=== PATIENT | female | born 1955 | race Caucasian/White ===

== ENCOUNTER → 2020-01-16 12:57 | Outpatient (BNVA) | payer MEDICARE, SELFPAY | PROVIDERS: PCP Internal Medicine; Referring Provider Internal Medicine; Visit Provider Student in an Organized Health Care Education/Training Program | DX: M81.0 Age-related osteoporosis without current pathological fracture (principal) | CPT/HCPCS: 96402; J0897 ==

== ENCOUNTER → 2020-03-26 13:54 | Outpatient (BNVA) | payer MEDICARE, SELFPAY | PROVIDERS: PCP Internal Medicine; Referring Provider Internal Medicine; Visit Provider Student in an Organized Health Care Education/Training Program | DX: M81.0 Age-related osteoporosis without current pathological fracture (principal) | CPT/HCPCS: 99212 ==

== ENCOUNTER → 2020-08-03 14:51 | Outpatient (BNVA) | payer MEDICARE, SELFPAY | PROVIDERS: PCP Internal Medicine; Visit Provider Student in an Organized Health Care Education/Training Program | DX: M81.0 Age-related osteoporosis without current pathological fracture (principal) | CPT/HCPCS: 96372 ==

== ENCOUNTER 2020-10-05 15:20 | Outpatient (REF) | payer MEDICARE, SELFPAY ==
--- NOTE | ~2020-10-05 | US_ITS ---
EXAMINATION: US THYROID CLINICAL INFORMATION: Neck mass. COMPARISON: Ultrasound soft tissue head/neck thyroid dated 08/13/2019 and 05/20/2018. TECHNIQUE: Linear transducer grayscale and color Doppler examination with attention to the region of the thyroid. FINDINGS: SIZE: Measurements of the thyroid lobes and nodules are given in sagittal, anteroposterior and transverse dimensions respectively. Right Thyroid Lobe: 3.6 x 1.1 x 1.9 cm, volume 3.9 mL. Previously 4.3 x 0.9 x 1.3 cm, volume 2.6 mL. Parenchyma: The gland echotexture is heterogeneous. Thyroid vascularity is normal. Left Thyroid Lobe: 2.9 x 0.8 x 0.9 cm, volume 1.1 mL. Previously 3.9 x 0.8 x 1.1 cm, volume 1.7 mL. Parenchyma: The gland echotexture is heterogeneous. Thyroid vascularity is normal. Isthmus: 0.1 cm in maximum AP dimension. Previously 0.2 cm. Estimated total number of nodules greater than or equal to 1 cm: 0. 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 Location: Right mid. Question nodule versus area of gland heterogeneity Size: 0.47 x 0.29 x 0.49 cm, volume 0.03 mL. Previously: Not documented on the previous study. Nodule characteristics: Composition: Solid/almost completely solid (2). Echogenicity: Hypoechoic (2). Shape: Not taller than wide (0). Margins: Smooth (0). Echogenic Foci: None (0). ACR TI-RADS total points: 4 ACR TI-RADS category: 4 2. Location: Left superior.Question nodule versus area of gland heterogeneity Size: 0.63 x 0.35 x 0.67 cm, volume 0.08 mL. Previously: Not documented on the previous study. Nodule characteristics: Composition: Solid/almost completely solid (2). Echogenicity: Hypoechoic (2). Shape: Not taller than wide (0). Margins: Smooth (0). Echogenic Foci: None (0). ACR TI-RADS total points: 4 ACR TI-RADS category: 4 NODES: No lymphadenopathy is seen in the tissue surrounding the thyroid gland. There is a 0.7 x 0.2 x 0.5 cm hyperechoic lesion inferior to the left lobe. Previously this measured 0.6 x 0.3 x 0.7 cm and is probably not appreciably changed. US/US thyroid IMPRESSION: Small heterogeneous thyroid gland. Question small bilateral nodules versus areas of gland heterogeneity. No appreciable change in the hyperechoic lesion inferior to the left lobe. . ACR TI-RADS RECOMMENDATION REFERENCE: Ultrasound-guided fine-needle aspiration, followup ultrasound, no further follow up. * TR1 (0 point) and TR 2 (2 points): No FNA or follow up * TR3 (3 points): FNA if more than or equal to 2.5 cm in maximum dimension, followup ultrasound in 1, 3 and 5 years if 1.5 to 2.4 cm in maximum dimension. * TR4 (4-6 points): FNA if more than or equal to 1.5 cm in maximum dimension, followup ultrasound in 1, 2, 3 and 5 years if 1 to 1.4 cm in maximum dimension. * TR5 (more than or equal to 7 points): FNA if more than or equal to 1 cm in maximum dimension, followup ultrasound every year for 5 years if 0.5 to 0.9 cm in maximum dimension. * TR3, TR4 or TR5 nodules that are below the size threshold for follow up receive no follow up.
== END 2020-10-05 15:21 | disposition home or self-care (01) ==
LOC: HO.US 15:20
PROVIDERS: Visit Provider Internal Medicine
DX: R22.1 Localized swelling, mass and lump, neck (principal)
CPT/HCPCS: 76536

== ENCOUNTER → 2020-10-14 08:39 | Outpatient (BNVA) | payer MEDICARE, SELFPAY | PROVIDERS: PCP Internal Medicine; Visit Provider Internal Medicine | CPT/HCPCS: Q3014 ==

== ENCOUNTER 2020-10-19 07:23 | Outpatient (REF) | payer MEDICARE, SELFPAY ==
[2020-10-19 08:58] LABS: Alanine Aminotransferase 16 U/L (0-31); Albumin Level 4.3 g/dL (3.5-5.0); Alkaline Phosphatase 48 U/L (39-117); Anion Gap 13 (12-20); Aspartate Amino Transferase 23 U/L (5-31); Bilirubin Total 0.7 mg/dL (0.0-1.0); Blood Urea Nitrogen 11 mg/dL (9-16); Calcium 9.3 mg/dL (8.4-10.2); Carbon Dioxide 26 mmol/L (22-29); Chloride 106 mmol/L (96-108); Estimated Glomerular Filt Rate > 60; Glucose Random 81 mg/dL (60-115); Potassium 4.3 mmol/L (3.3-5.1); Sodium 141 mmol/L (135-145); Total Protein 7.6 g/dL (6.5-8.0)
[2020-10-19 09:25] LABS: Free T4 (Free Thyroxine) 1.07 ng/dL (0.71-1.85); Thyroid Stimulating Hormone 2.65 uIU/mL (0.32-4.0)
[2020-10-24 12:57] LABS: Vitamin D 25-OH, D2 <4 ng/mL; Vitamin D 25-OH, D3 56 ng/mL; Vitamin D 25-OH, Total 56 ng/mL (30-100)
== END 2020-10-19 07:24 | disposition home or self-care (01) ==
LOC: HO.LAB 07:23
PROVIDERS: Student in an Organized Health Care Education/Training Program; PCP Internal Medicine; Visit Provider Internal Medicine
DX: M81.0 Age-related osteoporosis without current pathological fracture (principal); E03.9 Hypothyroidism, unspecified
CPT/HCPCS: 36415; 80053; 82306; 84439; 84443

== ENCOUNTER 2021-01-31 14:13 | Outpatient (REF) | payer MEDICARE, SELFPAY ==
[2021-01-31 15:11] LABS: Alanine Aminotransferase 16 U/L (0-31); Albumin Level 4.4 g/dL (3.5-5.0); Alkaline Phosphatase 51 U/L (39-117); Anion Gap 13 (12-20); Aspartate Amino Transferase 21 U/L (5-31); Bilirubin Total 0.5 mg/dL (0.0-1.0); Blood Urea Nitrogen 15 mg/dL (9-16); Carbon Dioxide 27 mmol/L (22-29); Chloride 104 mmol/L (96-108); Estimated Glomerular Filt Rate > 60; Glucose Random 97 mg/dL (60-115); Potassium 4.4 mmol/L (3.3-5.1); Sodium 140 mmol/L (135-145); Total Protein 7.5 g/dL (6.5-8.0)
[2021-01-31 15:34] LABS: Vitamin D 25-OH Total 65.8 ng/mL (>30)
== END 2021-01-31 14:14 | disposition home or self-care (01) ==
LOC: HO.LAB 14:13
PROVIDERS: PCP Internal Medicine; Visit Provider Nurse Practitioner Family
DX: M81.0 Age-related osteoporosis without current pathological fracture (principal)
CPT/HCPCS: 36415; 80053; 82306

== ENCOUNTER → 2021-02-08 14:26 | Outpatient (BNVA) | payer MEDICARE, SELFPAY | PROVIDERS: PCP Internal Medicine; Visit Provider Nurse Practitioner Family | DX: M81.0 Age-related osteoporosis without current pathological fracture (principal) | CPT/HCPCS: 96372 ==

== ENCOUNTER → 2021-06-01 14:14 | Outpatient (BNVA) | payer MEDICARE, SELFPAY | PROVIDERS: PCP Internal Medicine; Visit Provider Nurse Practitioner Family | DX: M81.0 Age-related osteoporosis without current pathological fracture (principal) | CPT/HCPCS: 99212 ==

== ENCOUNTER 2021-07-07 05:59 | Outpatient (REF) | payer MEDICARE, SELFPAY ==
--- NOTE | ~2021-07-07 | MM_ITS ---
EXAMINATION: BONE DENSITOMETRY CLINICAL INDICATION: Osteoporosis. COMPARISON: Baseline BD dated 05/14/2018. TECHNIQUE: Using a [employer] DXA System (software version: 13.1) manufactured by [employer], dual-energy x-ray absorptiometry was performed of the lumbar spine and left hip. The images are of good technical quality. Summary results are attached. FINDINGS: AP SPINE L1-L4: Current: BMD 0.873 g/cm2, Z-score -0.8, T-score -2.6, osteoporosis, 3.4% increase from baseline (<5% change is not significant). Baseline: BMD 0.844 g/cm2. LEFT FEMUR, NECK: Current: BMD 0.806 g/cm2, Z-score 0.0, T-score -1.7, osteopenia. Baseline: BMD 0.807 g/cm2. LEFT FEMUR, TOTAL: Current: BMD 0.852 g/cm2, Z-score 0.2, T-score -1.2, osteopenia, 3.6% increase from baseline (<5% change is not significant). Baseline: BMD 0.822 g/cm2. IDENTIFIED RISK FACTORS: Eaarly menopause, secondary osteoporosis. HISTORY OF FRACTURE: None listed. MEDICATIONS: Calcium, vitamin D, calcitonin. MM/XR DEXA axial skeleton IMPRESSION: 1. DIAGNOSIS: Osteoporosis based on the lowest T-score value of -2.6 in the lumbar spine applying World Health Organization criteria. 2. 10-YEAR FRACTURE RISK PREDICTION, FRAX: Major osteoporotic fracture (clinical spine, forearm, hip or shoulder) 5.4%. Hip fracture 0.8%. 3. Treatment Recommendations: NOF guidelines recommend consideration for treatment in postmenopausal women and men age 50 and older presenting with the following: -A hip or vertebral (clinical or morphometric) fracture. -T-score less than or equal to -2.5 at the femoral neck or spine after appropriate evaluation to exclude secondary causes. -Low bone mass at the hip or spine and a 10-year fracture probability by FRAX of greater than or equal to 3% for hip fracture or greater than or equal to 20% for major osteoporotic fracture based on the [place] adapted WHO algorithm. 4. Other Recommendations: All treatment decisions require clinical judgment and consideration of individual patient factors, including patient preferences, comorbidities, previous drug use, risk factors not captured in the FRAX model (e.g. frailty, falls, vitamin D deficiency, increased bone turnover, interval significant decline in bone density) and possible under or overestimation of fracture risk by FRAX. Additional medical evaluation for secondary cause of low bone mineral density may be appropriate. FUTURE SCAN RECOMMENDATION: People with diagnosed cases of osteoporosis or at high risk for fracture should have regular bone mineral density tests. For patients eligible for Medicare, routine testing is allowed once every 2 years. The testing frequency can be increased to one year for patients who have rapidly progressing disease, those who are receiving or discontinuing medical therapy to restore bone mass, or have additional risk factors.
[2021-07-07 07:26] LABS: Alanine Aminotransferase 14 U/L (0-31); Albumin Level 4.4 g/dL (3.5-5.0); Alkaline Phosphatase 46 U/L (39-117); Anion Gap 12 (12-20); Aspartate Amino Transferase 21 U/L (5-31); Bilirubin Total 0.9 mg/dL (0.0-1.0); Blood Urea Nitrogen 14 mg/dL (9-16); Calcium 9.9 mg/dL (8.4-10.2); Carbon Dioxide 27 mmol/L (22-29); Chloride 106 mmol/L (96-108); Estimated Glomerular Filt Rate > 60; Glucose Random 79 mg/dL (60-115); Potassium 4.4 mmol/L (3.3-5.1); Sodium 141 mmol/L (135-145); Total Protein 7.6 g/dL (6.5-8.0)
[2021-07-07 07:49] LABS: Thyroid Stimulating Hormone 3.45 uIU/mL (0.32-4.0)
[2021-07-07 07:51] LABS: Vitamin D 25-OH Total 63.5 ng/mL (>30)
== END 2021-07-07 06:00 | disposition home or self-care (01) ==
LOC: HO.MAMMO 05:59
PROVIDERS: Absent Provider Internal Medicine; PCP Internal Medicine; Visit Provider Nurse Practitioner Family
DX: M81.0 Age-related osteoporosis without current pathological fracture (principal); Z78.0 Asymptomatic menopausal state; E03.9 Hypothyroidism, unspecified
CPT/HCPCS: 36415; 77080; 80053; 82306; 84443

== ENCOUNTER → 2021-08-09 14:28 | Outpatient (BNVA) | payer MEDICARE, SELFPAY | PROVIDERS: PCP Internal Medicine; Visit Provider Nurse Practitioner Family | DX: M81.0 Age-related osteoporosis without current pathological fracture (principal) | CPT/HCPCS: 96372; 99212 ==

== ENCOUNTER 2022-02-13 14:11 | Outpatient (REF) | payer MEDICARE, SELFPAY ==
--- NOTE | ~2022-02-13 | MM_ITS ---
EXAMINATION: MM SCREENING DIGITAL BREAST TOMOSYNTHESIS, BILATERAL CLINICAL INFORMATION: Screening. Asymptomatic. The lifetime risk of breast cancer based on the Tyrer-Cuzick Model is 4%. COMPARISON: Mammography: 03/21/2019, 02/27/2018 (new baseline). TECHNIQUE: Digital breast tomosynthesis is performed in both the craniocaudal and mediolateral oblique views along with computer-aided detection (CAD). Synthesized 2D images are generated from the tomosynthesis. FINDINGS: There are scattered areas of fibroglandular density (ACR BI-RADS breast composition Category b). Breast tissue composition borders on heterogeneously dense. Parenchymal pattern is similar to prior studies. There is no developing density or architectural abnormality. Dermal lesion again seen overlying the mid medial right breast. There are scattered bilateral round and vascular calcifications. The axilla are unremarkable. No significant changes. MM/MM tomosynthesis screening BI IMPRESSION: No mammographic evidence of malignancy. ASSESSMENT: BI-RADS 2: Benign RECOMMENDATION: Routine annual mammography screening. This patient's information was entered into a reminder system with a target due date for their next mammogram.
== END 2022-02-13 14:12 | disposition home or self-care (01) ==
LOC: HO.MAMMO 14:11
PROVIDERS: PCP Internal Medicine; Visit Provider Internal Medicine
DX: Z12.31 Encounter for screening mammogram for malignant neoplasm of breast (principal)
CPT/HCPCS: 77063; 77067

== ENCOUNTER 2022-03-10 06:00 | Outpatient (REF) | payer MEDICARE, SELFPAY ==
[2022-03-10 08:13] LABS: Alanine Aminotransferase 10 U/L (0-31); Albumin Level 4.3 g/dL (3.5-5.0); Alkaline Phosphatase 55 U/L (39-117); Anion Gap 16 (12-20); Aspartate Amino Transferase 21 U/L (5-31); Bilirubin Total 0.8 mg/dL (0.0-1.0); Blood Urea Nitrogen 13 mg/dL (9-16); Calcium 9.8 mg/dL (8.4-10.2); Carbon Dioxide 26 mmol/L (22-29); Chloride 107 mmol/L (96-108); Cholesterol 180 mg/dL; Estimated Glomerular Filt Rate > 60; Glucose Random 79 mg/dL (60-115); HDL Cholesterol 61 mg/dL; LDL Cholesterol Calculated 105 mg/dl; Phosphorus 3.8 mg/dL (2.7-4.5); Potassium 4.6 mmol/L (3.3-5.1); Sodium 144 mmol/L (135-145); Total Protein 7.3 g/dL (6.5-8.0); Triglycerides 73 mg/dL
[2022-03-10 08:20] LABS: Thyroid Stimulating Hormone 4.07 uIU/mL (0.32-4.0); Vitamin D 25-OH Total 60.5 ng/mL (>30)
== END 2022-03-10 06:01 | disposition home or self-care (01) ==
LOC: HO.LAB 06:00
PROVIDERS: Absent Provider Nurse Practitioner Family; PCP Internal Medicine; Visit Provider Internal Medicine
DX: Z00.00 Encounter for general adult medical examination without abnormal findings (principal); E55.9 Vitamin D deficiency, unspecified; M81.0 Age-related osteoporosis without current pathological fracture; E03.9 Hypothyroidism, unspecified; E78.5 Hyperlipidemia, unspecified
CPT/HCPCS: 36415; 80053; 80061; 82306; 84100; 84443

== ENCOUNTER 2022-03-21 14:11 | Outpatient (REF) | payer MEDICARE, SELFPAY ==
--- NOTE | ~2022-03-21 | XR_ITS ---
EXAMINATION: XR CHEST CLINICAL INFORMATION: Cough. COMPARISON: None TECHNIQUE: 2 views of the chest were obtained. FINDINGS: The lungs are well-expanded and clear. There is bilateral apical pleural thickening and scarring. Heart size and pulmonary vascularity is normal. No gross bony abnormality seen. XR/XR chest 2V IMPRESSION: Bilateral apical pleural thickening and scarring. No acute process seen.
== END 2022-03-21 14:12 | disposition home or self-care (01) ==
LOC: HO.XRAY 14:11
PROVIDERS: PCP Internal Medicine; Visit Provider Internal Medicine
DX: R05.9 Cough, unspecified (principal)
CPT/HCPCS: 71046

== ENCOUNTER → 2022-04-04 14:15 | Outpatient (BNVA) | payer MEDICARE, SELFPAY | PROVIDERS: PCP Internal Medicine; Visit Provider Nurse Practitioner Family | DX: M81.0 Age-related osteoporosis without current pathological fracture (principal); M79.671 Pain in right foot; M79.672 Pain in left foot; M25.561 Pain in right knee | CPT/HCPCS: 96372; 99212; J0897 ==

== ENCOUNTER 2022-05-23 16:18 | Outpatient (REF) | payer MEDICARE, SELFPAY | END 2022-05-23 16:19 | disposition home or self-care (01) | LOC: HO.LAB 16:18 | PROVIDERS: PCP Internal Medicine; Visit Provider Internal Medicine | DX: E03.9 Hypothyroidism, unspecified (principal) | CPT/HCPCS: 36415; 84443 ==

== ENCOUNTER 2022-07-05 14:07 | Outpatient (REF) | payer MEDICARE, SELFPAY ==
[2022-07-05 16:30] LABS: Thyroid Stimulating Hormone 2.24 uIU/mL (0.32-4.0)
== END 2022-07-05 14:08 | disposition home or self-care (01) ==
LOC: HO.LAB 14:07
PROVIDERS: PCP Internal Medicine; Visit Provider Internal Medicine
DX: E03.9 Hypothyroidism, unspecified (principal)
CPT/HCPCS: 36415; 84443

== ENCOUNTER 2022-10-05 14:23 | Outpatient (AMB) | payer MEDICARE, SELFPAY ==
[2022-10-05 14:26] VITALS: BP 130/58; PULSE 69; TEMP 36.7; O2SAT 98; BMI 21.9
--- NOTE | 2022-10-05 14:26 | A.OFFVIS_ITS ---
Intake Vital Signs 10/05/22 14:26 Height 5 ft 4 in Weight 127 lb 10.362 oz BMI 21.9 BP 130/58 L Blood Pressure Location Rt brachial Position Sitting Pulse 69 Pulse Source Pulse Oximeter Temp 98.1 F Temp Source Temporal Artery Scan Pulse Oximetry (%) 98 Oxygen Delivery Method Room Air Intake Visit Reasons: Osteoporosis follw up /Prolia inj Intake Note: Pt presents as a Osteoporosis f/u / prolia Inj. Vehicle Trimmer Required: Yes Vehicle Trimmer Name: Linda [id number] Allergies duloxetine [From CYMBALTA] Allergy (Unknown, Verified 10/05/22 14:31) STOMACH UPSET Medication List - Last Reconciled 10/05/22 by Marychuy Elmore MD calcium carbonate 500 mg PO DAILY cetirizine (Zyrtec) 10 mg PO DAILY PRN cholecalciferol (vitamin D3) 50 mcg PO DAILY denosumab (Prolia) 60 mg subcut [id number] levothyroxine (Synthroid) 50 mcg PO DAILY 90 days levothyroxine 75 mcg PO DAILY 90 days HPI HPI Comments History of Present Illness Details 67yoF presents for follow-up of osteoporosis. Last her March 2022 Patient is doing well overall. She has no complaints today. She has tolerated the Prolia with no complications in the past. FORMERLY [facility], [facility]–1983 Medical History Arthritis Asthma Colitis Depression Fibromyalgia Hypothyroidism Hypovitaminosis D Mild recurrent major depression Osteoarthritis Salivary gland abscess Urge urinary incontinence Surgical History Hx of section Hx of cholecystectomy Salivary gland tumor Family History Father Asthma Emphysema of lung Guillain Fuentes? syndrome Mother HTN (hypertension) Social History Housing: Apartment Alcohol intake: never Patient Tobacco Use Status: Never used Tobacco e-Cigarette/Vaping Use: Never Used Second Hand Smoke Exposure: No Use of substances other than those prescribed or required for medical reasons: No service: No Current occupational status: unemployed Cognitive needs: No Hearing needs: No Vision needs: Yes Review of Systems Musc Denies arthralgias Physical Exam Vital Signs: Last Vital Signs Temp 98.1 F 10/05/22 14:26 Pulse 69 10/05/22 14:26 BP 130/58 L 10/05/22 14:26 Pulse Ox 98 10/05/22 14:26 Oxygen Delivery Method Room Air 10/05/22 14:26 BMI result Body Mass Index 21.9 Const General: cooperative, healthy appearing and comfortable Nutritional Appearance: average body habitus Orientation/consciousness: patient oriented x3 Limitations: no limitations HEENT Head: Yes normocephalic and Yes atraumatic Mouth: moist mucous membranes Resp Effort & Inspection: normal respiratory effort and able to speak in complete sen tences Auscultation: clear to auscultation bilaterally Cardio Rate: regular rate Neuro General: patient oriented x3 Extrem Other: Mild osteoarthritic changes of both hands with no active synovitis Bilateral knee crepitus with no pain with range of motion Results Reviewed Results Reviewed: Laboratory Tests 07/07/2021 EXAMINATION: BONE DENSITOMETRY CLINICAL INDICATION: Osteoporosis. COMPARISON: Baseline BD dated 05/14/2018. TECHNIQUE: Using a [employer] DXA System (software version: 13.1) manufactured by [employer], dual-energy x-ray absorptiometry was performed of the lumbar spine and left hip. The images are of good technical quality. Summary results are attached. FINDINGS: AP SPINE L1-L4: Current: BMD 0.873 g/cm2, Z-score -0.8, T-score -2.6, osteoporosis, 3.4% increase from baseline (<5% change is not significant). Baseline: BMD 0.844 g/cm2. LEFT FEMUR, NECK: Current: BMD 0.806 g/cm2, Z-score 0.0, T-score -1.7, osteopenia. Baseline: BMD 0.807 g/cm2. LEFT FEMUR, TOTAL: Current: BMD 0.852 g/cm2, Z-score 0.2, T-score -1.2, osteopenia, 3.6% increase from baseline (<5% change is not significant). Baseline: BMD 0.822 g/cm2. IDENTIFIED RISK FACTORS: Eaarly menopause, secondary osteoporosis. HISTORY OF FRACTURE: None listed. MEDICATIONS: Calcium, vitamin D, calcitonin. MM/XR DEXA axial skeleton IMPRESSION: 1. DIAGNOSIS: Osteoporosis based on the lowest T-score value of -2.6 in the lumbar spine applying World Health Organization criteria.? Assessment & Plan Assessment & Plan (1) Osteoporosis: Comment: Diagnosed 13 years ago. Treated with Raloxifene for 6 years, then switched to Risendronate but developed diarrhea so it was stopped. Then given 1 dose of Zolendronic acid in 2016. Started on Prolia 06/2018. Code(s): M81.0 - Age-related osteoporosis without current pathological fracture Qualifiers: Osteoporosis type: unspecified Presence of current pathological fracture: without current pathological fracture Qualified Code(s): M81.0 - Age- related osteoporosis without current pathological fracture Plan: Dexa 07/2021 with Osteoporosis based on the lowest T-score value of -2.6 in the lumbar spine, this was improved from 2019 where patient had a T-score of -2.8 in the lumbar spine.?On Prolia since July 2018 patient tolerating Prolia well. Check BMP before next injection in 6 months. Will repeat DEXA in 2023. Orders: Orders Basic Metabolic Panel 6 Months M81.0 - Age-related osteoporosis without current pathological fracture Vitamin D 25-OH (D2 and D3) 6 Months E55.9 - Vitamin D deficiency, unspecified Coding Level of Care Code Est Pt Level 3 (30105) Diagnoses Osteoporosis M81.0 Osteoporosis type: unspecified Presence of current pathological fracture: without current pathological fracture
== END 2022-10-05 15:14 | disposition home or self-care (01) ==
PROVIDERS: PCP Internal Medicine; Visit Provider Student in an Organized Health Care Education/Training Program
DX: M81.0 Age-related osteoporosis without current pathological fracture (principal)
CPT/HCPCS: 99213; J0897

== ENCOUNTER → 2022-10-05 14:23 | Outpatient (BNVA) | payer MEDICARE, SELFPAY | PROVIDERS: PCP Internal Medicine; Visit Provider Student in an Organized Health Care Education/Training Program | DX: M81.0 Age-related osteoporosis without current pathological fracture (principal) | CPT/HCPCS: 96372; 99212 ==